=== PATIENT | female | born 1975 | race Two or more races ===

== ENCOUNTER 2022-10-07 15:24 | Emergency (ER) | payer SELFPAY ==
--- NOTE | 2022-10-07 20:00 | NUR ---
CALLED TO TRIAGE NO ANSWER
--- NOTE | 2022-10-07 20:23 | NUR ---
PATIENT NOT IN WAITING ROOM
== END 2022-10-07 20:24 | disposition left against medical advice (07) ==
LOC: ER 15:29
DX: Z53.21 Procedure and treatment not carried out due to patient leaving prior to being seen by health care provider (principal)